=== PATIENT | male | born 1970 | race Two or more races ===

== ENCOUNTER 2016-06-12 20:26 | Emergency (ER) | payer BC ==
[2016-06-12] MEDS ORDERED: HYDROCODONE/ACETAMINOPHEN 5/325MG TABLET ONE (23:26)
[2016-06-12] MEDS ORDERED: CIPROFLOXACIN 500 MG TABLET ONE (23:26)
[2016-06-12] MEDS ORDERED: AMOX 875 MG/CLAV 125 MG 1 EACH TABLET ONE (23:35)
--- NOTE | 2016-06-13 07:43 | RAD ---
Exam: Two-view chest COMPARISON: 12/20/2012 INDICATION: Cough and congestion. FINDINGS: PA and lateral views the chest were obtained. Cardiac silhouette is within normal limits. There is no focal airspace disease or pleural effusion. There is a stable calcified granuloma in the right middle lobe, a benign finding. No additional pulmonary nodules are identified. Bones of the chest wall within normal limits. IMPRESSION: No acute pulmonary process.
== END 2016-06-13 00:01 | disposition home or self-care (01) ==
LOC: ED 20:26
DX: J09.X2 Influenza due to identified novel influenza A virus with other respiratory manifestations (principal); F41.9 Anxiety disorder, unspecified
CPT/HCPCS: 71020; 87804; 99283 ×2; A9270 ×3